=== PATIENT | female | born 1985 | race Two or more races ===

== ENCOUNTER 2017-03-04 17:52 | Emergency (ER) | payer OTHER ==
[~2017-03-04] VITALS: Ht 162.6 cm; Wt 54.5 kg
[2017-03-04] MEDS ORDERED: TRI-LO-SPRINTE1 EAC1 PO (18:06)
[2017-03-04 18:24] LABS: EOSINOPHIL (%) 0.6 % (0-5); HEMATOCRIT 38.9 % (36.0-46.0); IMMATURE GRANULOCYTE (%) 0.2 % (0.0-0.7); INSTRUMENT ABS NEUTROPHIL CT 3.5 K/uL; LYMPHOCYTE COUNT 2.3 K/uL (1.0-2.8); MCH 28.2 PG (29.0-34.0); MCHC 32.6 G/DL (30.0-36.0); MCV 86.4 FL (83-99); MEAN PLAT.VOLUME 9.4 uM^3 (9.5-12.4); MONOCYTE (%) 5.2 % (3-12); MONOCYTE COUNT 0.3 K/uL (0-0.8); NEUTROPHIL (%) 56.1 % (45-76); NEUTROPHIL COUNT 3.5 K/uL (1.8-6.4); PLATELET COUNT 243 K/uL (156-360); RBC DIS.WIDTH-CV 12.8 % (11.8-14.6); RBC DIS.WIDTH-SD 40.2 % (39-53); WHITE BLOOD COUNT 6.2 K/uL (4.1-10.2)
[2017-03-04 18:32] LABS: CHLORIDE 106 mEq/L (99-109); POTASSIUM 3.5 mEq/L (3.7-5.4); SODIUM 139 mEq/L (136-147)
[2017-03-04 18:35] LABS: GLUCOSE 94 mg/dL (70-99)
[2017-03-04 18:36] LABS: ANION GAP 8 MEQ/L (2-14); TOTAL BILIRUBIN 0.3 mg/dL (0.0-1.0)
[2017-03-04 18:38] LABS: ALKALINE PHOSPHATASE 61 IU/L (3-129); GFR ESTIMATE (CALCULATED) > 59 mL/min/
[2017-03-04 18:39] LABS: UREA NITROGEN (BUN) 11 mg/dL (9-23)
[2017-03-04 18:40] LABS: DIRECT BILIRUBIN 0.1 mg/dL (0.0-0.3)
[2017-03-04 18:47] LABS: QUANTITATIVE HCG < 4.0 MIU/ML
[2017-03-04 20:01] VITALS: BP 141/81
== END 2017-03-04 20:01 | disposition home or self-care (01) ==
LOC: EME 17:52
PROVIDERS: Emergency Medicine
DX: Z77.21 Contact with and (suspected) exposure to potentially hazardous body fluids (principal); Z57.8 Occupational exposure to other risk factors; Y99.0 Civilian activity done for income or pay
CPT/HCPCS: 80048; 80076; 84702; 85025; 86703; 86706; 86803; 99281; 99284